=== PATIENT | female | born 1985 | race Caucasian/White ===

== ENCOUNTER → 2018-01-03 11:07 | Outpatient (CLI) | payer OTHER, SELFPAY ==
[2018-01-03 11:36] LABS: Basophils # 0.1 K/mm3 (0-0.2); Basophils % 0.4 % (0.1-2.0); Eosinophils # 0.3 K/mm3 (0.0-0.4); Eosinophils % 1.9 % (0.1-12.0); Hematocrit 38.2 % (37.0-47.0); Hemoglobin 12.8 g/dL (12.2-16.2); Lymphocytes # 2.3 K/mm3 (0.7-4.5); Lymphocytes % 16.7 K/mm3 (10-50); Mean Corpuscular HGB Conc 33.6 g/dL (31.8-35.4); Mean Corpuscular Volume 89.4 fl (81-99); Mean Platelet Volume 7.3 fl (7.4-10.4); Monocytes # 0.5 K/mm3 (0.1-1.0); Monocytes % 3.8 % (1.7-9.3); Neutrophils # 10.4 K/mm3 (1.8-7.8); Neutrophils % 77.3 % (37.0-80.0); Platelet Count 326 K/mm3 (142-424); Red Blood Count 4.28 M/mm3 (4.20-5.40); Red Cell Distribution Width 13.6 % (11.5-17.5); White Blood Count 13.5 K/mm3 (4.8-10.8)
[2018-01-03 12:21] LABS: HCG,Quantitative 16121 mIU/mL
[2018-01-04 08:23] LABS: HIV Screen 4th Generation wRfx Non Reactive (Non Reactive)
[2018-01-04 18:43] LABS: Hepatitis B Surface Antigen Negative (Negative); Hepatitis C Antibody 0.1 s/co ratio (0.0-0.9); Rapid Plasma Reagin Ab Titer Non Reactive (NonRea<1:1); Rubella Antibodies, IgG 2.75 index (Immune >0.99)
== END ==
PROVIDERS: PCP Obstetrics & Gynecology; Visit Provider Obstetrics & Gynecology
DX: Z34.90 Encounter for supervision of normal pregnancy, unspecified, unspecified trimester (principal)
CPT/HCPCS: 36415; 84702; 85025; 86592; 86703; 86762; 86850; 87340; 87380; G0432

== ENCOUNTER → 2018-03-10 19:03 | Outpatient (REF) | payer OTHER, SELFPAY | LOC: LAB 19:03 | PROVIDERS: Visit Provider Nurse Practitioner Obstetrics & Gynecology | DX: R39.89 Other symptoms and signs involving the genitourinary system (principal) | CPT/HCPCS: 87086 ==

== ENCOUNTER → 2018-04-09 13:23 | Outpatient (CLI) | payer OTHER, SELFPAY ==
--- NOTE | 2018-04-09 13:25 | US_ITS ---
US OB /maternal detail: INDICATION: ITS.REASON: US OB Complete ORDERING PHYSICIAN: Alyssa Nettles MD PATIENT AGE: 32 years TECHNIQUE: ultrasound transabdominal scanning. COMPARISON: No previous relevant studies. FINDINGS: Single viable intrauterine gestation. Cephalic position. Placenta: ANT placenta grade 1. There is antegrade amount fluid. The cervix appears satisfactory. Closed and measuring in length. Complete survey performed and was unremarkable on the submitted images as in PACS. No discrete anomalies identified on survey imaging by technologist. Active fetus. Three-vessel cord with satisfactory umbilical cord insertion. 4- chamber heart noted. Survey of brain & ventricles unremarkable. Face and neck survey unremarkable. Diaphragm and chest views unremarkable. Abdomen: Both kidneys noted and unremarkable. Stomach noted and satisfactory. Spine: Survey of the spine satisfactory with no anomalies identified nor imaged. Both arms and legs noted. Amniotic Fluid: Adequate. Maternal adnexa: No significant findings. Measurements: Average ultrasound age 20w2d. Gestational Age 20w0d. Estimated due date by ultrasound age 0408/25/2018. Estimated weight 341 grams. BPD = 20w3d OFD = 20w4d HC = 19w5d AC = 20w3d FL = 20w2d Growth Percentile= 60% Heart Rate = 155 Cerebellum = 20w3d Humerus = 20w0d HC/AC is 1.13 (1.09-1.26). CI is 79% (70-86%). FL/BPD is 69%. FL/AC is 22%. IMPRESSION: There is a single fetus which is in cephalic presentation. Average ultrasound age is 20 weeks and 2 days. All parameters correlate. No obvious anomalies. Fetus is active. Placenta is anterior grade 1. Please see above for details.
== END ==
PROVIDERS: Visit Provider Obstetrics & Gynecology
DX: Z36.0 Encounter for antenatal screening for chromosomal anomalies (principal)
CPT/HCPCS: 76811

== ENCOUNTER → 2018-06-06 08:18 | Outpatient (CLI) | payer OTHER, SELFPAY ==
[2018-06-06 08:39] LABS: Glucose,Fasting 109 mg/dL (60-105)
[2018-06-06 10:56] LABS: Glucose 1 Hour 158 mg/dL (74-106)
== END ==
PROVIDERS: Visit Provider Obstetrics & Gynecology
DX: Z34.90 Encounter for supervision of normal pregnancy, unspecified, unspecified trimester (principal); Z3A.27 27 weeks gestation of pregnancy
CPT/HCPCS: 36415; 82951

== ENCOUNTER → 2018-06-20 07:52 | Outpatient (CLI) | payer OTHER, SELFPAY ==
[2018-06-20 08:54] LABS: Glucose,Fasting 100 mg/dL (60-105)
[2018-06-20 09:49] LABS: Glucose 1 Hour 158 mg/dL (74-106)
[2018-06-20 11:08] LABS: Glucose 2 Hour 137 mg/dL (74-106)
[2018-06-20 12:05] LABS: Glucose 3 Hour 113 mg/dL (74-106)
== END ==
PROVIDERS: Visit Provider Obstetrics & Gynecology
DX: Z34.90 Encounter for supervision of normal pregnancy, unspecified, unspecified trimester (principal)
CPT/HCPCS: 36415; 82951

== ENCOUNTER → 2018-07-09 10:03 | Outpatient (CLI) | payer OTHER, SELFPAY ==
--- NOTE | 2018-07-09 10:05 | US_ITS ---
US OB follow up: Indication: ITS.REASON: US OB- Growth NIC ORDERING PHYSICIAN: Alyssa Nettles MD PATIENT AGE: 33 years FINDINGS: The following parameters are obtained: Average ultrasound age is 35w6d. Estimated due date by ultrasound is 08/07/2018. Estimated weight is 2600gm. Growth percentile is 94% BPD: 37w6d OFD: 36w3d HC: 36w3d AC: 35w2d FL: 33w4d heart rate: 142 bpm. HC/AC: 1.03 (0.96-1.11) Cephalic index: 83% (70-86%) FL/BPD: 70% (71-87%) FL/AC: 21% (20-24%) Amniotic fluid index: 16 cm Qualitative AFV: 2 breathing movements: 2 Gross body movements: 2 Tone: 2 Biophysical profile score: 8/8 No obvious anomalies evident. Placenta: ANT GR 1 Cervix: Appears closed and measures 3 cm IMPRESSION: There is a single live fetus which is in cephalic presentation. Average ultrasound age is 35 weeks and 6 days with some discordance between the femur length and the remaining measurements. Estimated weight is 2600 g which is 94th percentile indicating large for gestational age Biophysical profile 8 of 8 with normal amniotic fluid index of 16 cm
== END ==
PROVIDERS: PCP Obstetrics & Gynecology; Visit Provider Obstetrics & Gynecology
DX: O36.60X0 Maternal care for excessive fetal growth, unspecified trimester, not applicable or unspecified (principal)
CPT/HCPCS: 76816

== ENCOUNTER → 2018-07-11 16:13 | Outpatient (CLI) | payer OTHER, SELFPAY | LOC: LAB 16:13 → LAB.DROPOF 16:17 | PROVIDERS: Visit Provider Obstetrics & Gynecology | DX: Z34.90 Encounter for supervision of normal pregnancy, unspecified, unspecified trimester (principal) | CPT/HCPCS: 87086 ==

== ENCOUNTER → 2018-07-23 17:56 | Outpatient (CLI) | payer OTHER, SELFPAY | PROVIDERS: Visit Provider Obstetrics & Gynecology | DX: Z34.90 Encounter for supervision of normal pregnancy, unspecified, unspecified trimester (principal) | CPT/HCPCS: 86403 ==

== ENCOUNTER 2018-08-14 15:39 | Inpatient (IN) ==
[2018-08-14 16:29] LABS: Basophils % 0.3 % (0.1-2.0); Eosinophils # 0.3 K/mm3 (0.0-0.4); Hemoglobin 10.5 g/dL (12.2-16.2); Lymphocytes % 16.1 % (10-50); Mean Corpuscular Hemoglobin 30.2 pg (27.0-31.2); Mean Corpuscular Volume 86.2 fl (81-99); Mean Platelet Volume 8.3 fl (7.4-10.4); Monocytes # 0.4 K/mm3 (0.1-1.0); Monocytes % 3.1 % (1.7-9.3); Neutrophils # 9.9 K/mm3 (1.8-7.8); Neutrophils % 78.5 % (37.0-80.0); Platelet Count 283 K/mm3 (142-424); Red Blood Count 3.48 M/mm3 (4.20-5.40); Red Cell Distribution Width 13.6 % (11.5-17.5); White Blood Count 12.6 K/mm3 (4.8-10.8)
--- NOTE | 2018-08-15 09:04 | History & Physical Report ---
OB - H&P: HPI Antepartum - History of Present Illness Chief complaint: IOL History of present illness: 33 yo G1 @ 38 wks admitted for IOL secondary to new onset hypertension during at term. Recent upward trend of BP into persistent mild range hypertension; preeclampsia labs negative. Given gestational age over 37 wks, she was advised that continuing the until 39 wks or onset of spontaneous labor provided no benefit over the risk of severe hypertensive complications and/or development of preeclampsia, and that immediate delivery was warranted. Cervix was relatively unfavorable (1/50/-1, soft) and she was brought in for cervical ripening with prostaglandins (cervidil) and mechanical augmentation with intra-cervical catheter on the evening of 08/14/18, with plan to begin pitocin augmentation on the morning of 08/15/18. otherwise complicated by tobacco abuse, mild anemia and obesity (BMI 39). testing with NST was reassuring at her last office visit on 08/13/18. [facility] History I have reviewed the patient's past medical history: Yes Medical History: Denies:: Arrhythmia, Diabetes Mellitus Type 2, Hypertension, Palpitations *Have you ever received a pneumonia vaccine?: No *Have you received a flu vaccine this season?: No Other Surgeries: Yes: No Previous Surgery. No: Amputation: No Fractures: No - *Social History Smoking Status: Former smoker Tobacco Type: cigarettes Alcohol Intake: never Substance Use Type: denies use *Occupational Status:: employed Family Hx:: Cancer, Diabetes, Heart Attack, Thyroid Disorder, Stroke, Kidney Disease, Hypertension, Hyperlipidemia, Asthma : 1 Para: 0 Review of Systems - Review of Systems CONSTITUTIONAL: no fever/chills HEENT: no oral lesions PULMONARY: no shortness of breath or difficulty breathing CV: no racing heart, palpitations or chest pain ABD: no abdominal pain, N/V : irregular contractions; no vaginal bleeding or LOF SKIN: no new rash or skin lesions EXT: + LE edema NEURO: no JAFFE or visual changes PSYCH: no current anxiety/depression OB: normal movement Meds Home Medications Medication Instructions Recorded Confirmed Type 1 tab PO DAILY 18 08/13/18 History vitamin,calcium,tdihqgpt-qran-zsdkh acid tablet Allergies Allergy/AdvReac Type Severity Reaction Status Date / Time nitrofurantoin Allergy Mild Verified 08/13/18 16:16 OB - H&P: Exam - Physical Exam Vital signs: Temp Pulse Resp BP Pulse Ox 97.6 F 82 18 133/64 99 08/14/18 19:43 08/14/18 19:43 08/14/18 19:43 08/14/18 19:43 08/14/18 19:43 Narrative: PHYSICAL EXAM: CONSTITUTIONAL: no acute distress HEENT: mucous membranes moist PULMONARY: breathing unlabored without audible wheezes CV: no tachycardia or visible JVD; normal LE peripheral pulses ABD: soft, NT/ND, no guarding. Gravid uterus. : cervix 1-2/50/-1 SKIN: no visible rash or lesions HEME: no lymphadenopathy EXT: 1+ edema LEs NEURO: alert/oriented, no altered mental status PSYCH: appropriate mood and demeanor without visible anxiety/depression SSE: cervix visualized midline and prepped with hibiclense Intra-cervical catheter inserted to the level of the internal cervical os and balloon inflated with 40cc sterile water, and pulled tight against the internal os Vaginal balloon inflated with 40cc sterile water and pushed tight towards the external os Appropriate placement of catheter and both balloons confirmed by digital exam Catheter taped to the patient's leg Patient tolerated the procedure well and NST remained reassuring throughout NST: Basline: 140 Variability: moderate Accelerations: yes Decelerations: no Impression: Reactive, Category 1 OB - Results - Labs Labs: Short CBC 08/14/18 Range/Units 15:16 WBC 12.6 H (4.8-10.8) K/mm3 Hgb 10.5 L (12.2-16.2) g/dL Hct 30.0 L (37.0-47.0) % Plt Count 283 (142-424) K/mm3 OB - A/P Antepartum (1) Current visit: Yes Status: Acute (2) Hypertension complicating Current visit: Yes Status: Acute (3) LGA (large for gestational age) fetus Current visit: Yes Status: Acute (4) Macrosomia Problem details: EFW 94% Current visit: Yes Status: Acute (5) Obesity, Class II, BMI 35-39.9 Current visit: Yes Status: Acute (6) Anemia complicating Problem details: 38 WKS GA Current visit: Yes Status: Acute (7) Tobacco smoking complicating in first trimester Problem details: 1/2 PPD Current visit: Yes Status: Acute - Additional Plan Additional Information:: IOL with prostaglandin and mechanical ripening Begin pitocin augmentation 08/15 am after removal of cervical catheter and cervidil Continuous monitoring Epidural at patient request Anticipate Tobacco cessation counseling
--- NOTE | 2018-08-15 10:01 | Progress Note ---
[facility] Anesthesia Checklist - Patient Identification Patient Identification: Arm Band - Structural Data Admitted From: Inpatient Planned Operative Procedure/s: labor epidural Consent for Planned Operative Procedure(s) Verified: Yes Verified Documents: History and Physical - NPO Status Verified Time NPO: 00:00 - Additional verifications Anesthesia Reactions: No - Airway Assessment C-Spine Mobility Assessed: Yes (mp2) TMJ Mobility Assessed: Yes Dentition: Good Dentition - Neurological Assessment Level of Consciousness: Awake, Alert - Anesthesia Plan Anesthesia Risk discussed: Yes Anesthesia Plan: Verified ASA Class: II Anesthesia Type: Epidural [facility] History I have reviewed the patient's past medical history: Yes Medical History: Denies:: Arrhythmia, Diabetes Mellitus Type 2, Hypertension, Palpitations *Have you ever received a pneumonia vaccine?: No *Have you received a flu vaccine this season?: No Other Surgeries: Yes: No Previous Surgery. No: Amputation: No Fractures: No - *Social History Smoking Status: Former smoker Tobacco Type: cigarettes Alcohol Intake: never Substance Use Type: denies use *Occupational Status:: employed Family Hx:: Cancer, Diabetes, Heart Attack, Thyroid Disorder, Stroke, Kidney Disease, Hypertension, Hyperlipidemia, Asthma Para: 0
[2018-08-15 10:32] LABS: Microscopic, Urine URINE MICROSCOPIC (MICROSCOPIC)
[2018-08-15 10:34] LABS: Appearance,Urine CLEAR (Clear); Bilirubin,Urine Negative (Negative); Blood, Urine Negative (Negative); Color,Urine YELLOW (Yellow); Glucose,Urine (UA) Negative (Negative); Ketones,Urine Negative (Negative); Leukocyte Esterase,Urine Negative (Negative); PH,Urine 6.5 (5.0-8.5); Protein,Urine Negative (Negative); Specific Gravity, Urine 1.015 (1.005-1.030); Urobilinogen,Urine 0.2 EU/dl (0.2)
[2018-08-15 11:33] LABS: Bacteria,Urine 1+ /lpf; Mucus,Urine 1+ /lpf
--- NOTE | 2018-08-15 15:04 | Progress Note ---
Labor Note - Subjective: Date: 08/15/18 Time: 10:05 regular contraction - Objective: NST:: Reactive Contractions:: every 2-3 minutes Cervical Dilation:: 4 Effacement:: 50% Station: -2 Membranes: ruptured Comment:: AROM with copious clear fluid. IUPC and FSE placed without complication or difficulty. - Fetus: Monitoring?: Yes monitoring type:: Internal - Assessment: Patient Problems: All Active Problems Anemia complicating (Acute) Macrosomia (Acute) LGA (large for gestational age) fetus (Acute) Hypertension complicating (Acute) Obesity, Class II, BMI 35-39.9 (Acute) Tobacco smoking complicating in first trimester (Acute) Lower extremity edema (Acute) (Acute) - Plan: Comment:: Continue pitocin augmentation. No progress in cervical dilation since removal of cervical catheter and starting pitocin augmentation but patient only recently had epidural placed for pain management. Will continue to monitor.
--- NOTE | 2018-08-15 15:08 | Progress Note ---
Labor Note - Subjective: Date: 08/15/18 Time: 14:15 regular contraction - Objective: NST:: Reactive Contractions:: every 2-3 minutes Cervical Dilation:: 4 Effacement:: 50% Station: -2 Membranes: ruptured - Fetus: monitoring type:: Internal Comment:: intermittent variable and late decelerations over the past 2 hours - Assessment: Labor progressing?: No Patient Problems: All Active Problems Anemia complicating (Acute) Macrosomia (Acute) LGA (large for gestational age) fetus (Acute) Hypertension complicating (Acute) Obesity, Class II, BMI 35-39.9 (Acute) Tobacco smoking complicating in first trimester (Acute) Lower extremity edema (Acute) (Acute) - Plan: Comment:: No change in cervical exam since pitocin begun 0500. Patient also having intermittent but persistent variable and late decelerations over the past couple hours. Appropriate return to baseline and overall reassuring status, but in the context of no cervical guide changer a prolonged period of time, in spite of adequate contractions, patient advised that it is not appropriate to continue with pitocin augmentation. Will proceed to OR for primary CS at this time. Informed consent obtained and all questions answered.
--- NOTE | 2018-08-15 16:09 | Operative Note ---
Date of procedure: 08/15/18 Pre-op Diagnosis:: 1. 38 wk 2. -induced hypertension 3. heart rate decelerations 4. failure to progress in labor 5. maternal obesity 6. anemia complicating 7. LGA fetus 8. tobacco abuse in Post-op Diagnosis:: 1. 38 wk 2. -induced hypertension 3. heart rate decelerations 4. failure to progress in labor 5. maternal obesity 6. anemia complicating 7. LGA fetus 8. tobacco abuse in Procedure performed:: Primary Low Transverse C Section Surgeon:: Alyssa Nettles MD Broom Handle Dipper(s):: Azra Almonte RN SUTURE WINDER HAND:: Other Anesthesia: epidural Estimated blood loss (mL): 800 Operative findings:: Vigorous liveborn male infant, with apgars of 8 & 9. Grossly normal uterus, fallopian tubes and ovaries. Placental calcification. Nuchal cord x 1. Operative note:: The patient was taken to the OR and her epidural was confirmed to be an adequate level block for the procedure. She was prepped and draped in normal sterile fashion. A pfannenstiel skin incision was made with the scalpel 2cm above the pubic symphysis, and sharply carried down to the fascia. The fascia was incised in the midline, extended laterally, and sharply dissected off the rectus muscles. The muscles were in the midline and the peritoneum was entered sharply and extended bluntly, with good visualization of the underlying stuctures. The Jean Claude-O self retaining retractor was placed in the abdomen and a bladder flap was created. The uterus was incised in the lower uterine segment in a transverse fashion and extended bluntly. Amniotomy had already been performed, but a copious amount of clear amniotic fluid was noted. Nuchal cord x 1 was reduced on the field. The was delivered in controlled fashion, without complication or shoulder dystocia. The was vigorous at and handed to awaiting waste management recycling technician for evaluation after the umbilical cord was cut. Cord blood was collected and a cord segment was preserved. The placenta was manually extracted and noted to be intact, with moderate calcifications. The uterus was repaired with 0-vicryl in a running/locked fashion. The peritoneum was closed with 2-0 vicryl in a running fashion. The fascia was closed with #1 vicryl in a running fashion. The subcutaneous fat was closed with 2-0 vicryl in an interrupted fashion. The skin was closed with vanessa. The patient tolerated the procedure well. Sponge, lap, needle and instrument counts were correct x 2. Total EBL: 800cc. She was taken to PACU awake and in stable condition, and the infant was taken back to Labor and Delivery. Condition: stable Disposition: PACU Specimens:: Placenta Complications:: None
--- NOTE | 2018-08-15 16:16 | Progress Note ---
[facility] Anesthesia Record Part I Intake, IV Amount: 700 Estimated blood loss (mL): 800 Urine output (mL): 150 Blood Products used (#): none Blood Pressure: 131/39 SaO2: 100 Pulse Rate: 91 Respiratory Rate: 16 Temperature: 97.9 F Patient is:: Awake, Stable Stable to PACU at:: 16:05
--- NOTE | 2018-08-15 16:17 | Progress Note ---
[facility] Anesthesia Record Part II Discharge Time: 16:35 Destination: Obstetric PACU nurse assessment reviewed?: Yes Patient Condition:: Good Anesthesia Complications:: None Swallowing reflex intact?: Yes Cyanosis?: No
[2018-08-16 05:57] LABS: Hemoglobin 8.4 g/dL (12.2-16.2)
[2018-08-16 06:01] LABS: Hematocrit 24.9 % (37.0-47.0)
--- NOTE | 2018-08-16 14:47 | Progress Note ---
Internal Medicine - PN: Subj *Date: 08/16/18 *Time: 14:41 Interval history: POD #1 primary CS for non-reassuring status and failure to progress in labor No complaints Asymptomatic with nvgpf-tl-mfxbtti anemia (hgb 10.5 at admission and 8.4 on POD #1) Lochia appropriate amount Ambulating and voiding without difficulty Tolerating regular diet Exam Vital signs and Labs for Last 24 Hours: Temp Pulse Resp BP Pulse Ox 98.1 F 98 H 18 142/81 H 97 08/15/18 19:26 08/15/18 19:26 08/15/18 19:26 08/15/18 19:26 08/15/18 19:26 Laboratory Results - last 24 hr 08/16/18 05:50: Hgb 8.4 L, Hct 24.9 L I & O for Last 24 hours: Intake & Output 08/14/18 08/15/18 08/16/18 08/17/18 11:59 11:59 11:59 11:59 Intake Total 800 / 800 Output Total 675 / 675 Balance 125 / 125 Weight 241 lb Narrative: CONSTITUTIONAL: no acute distress HEENT: mucous membranes moist PULMONARY: breathing unlabored without audible wheezes CV: no tachycardia or visible JVD; normal LE peripheral pulses ABD: soft, NT/ND, no guarding : fundus firm at/below umbilicus SKIN: incision well approximated with no drainage, erythema or induration EXT: 1+ edema LEs NEURO: alert/oriented, no altered mental status PSYCH: appropriate mood and demeanor without anxiety/depression Assessment and Plan (1) Current visit: Yes Status: Acute Qualifiers: Weeks of gestation: 38 weeks Qualified Code(s): Z3A.38 - 38 weeks gestation of Category: Medical Code(s): Z34.90 - Encounter for supervision of normal , unspecified, unspecified trimester (2) Hypertension complicating Current visit: Yes Status: Acute Category: Medical Code(s): O16.9 - Unspecified maternal hypertension, unspecified trimester (3) LGA (large for gestational age) fetus Current visit: Yes Status: Acute Category: Medical (4) Macrosomia Problem details: EFW 94% Current visit: Yes Status: Acute Category: Medical Code(s): P08.0 - Exceptionally large baby (5) Obesity, Class II, BMI 35-39.9 Current visit: Yes Status: Acute Category: Medical Code(s): E66.9 - Obesity, unspecified (6) Anemia complicating Problem details: 38 WKS GA Current visit: Yes Status: Acute Category: Medical Code(s): O99.019 - Anemia complicating , unspecified trimester (7) Tobacco smoking complicating in first trimester Problem details: 1/2 PPD Current visit: Yes Status: Acute Category: Medical Code(s): O99.331 - Smoking (tobacco) complicating , first trimester (8) Late deceleration of heart rate Current visit: Yes Status: Acute Category: Medical Code(s): O36.8390 - Maternal care for abnormalities of the heart rate or rhythm, unspecified trimester, not applicable or unspecified (9) Failure to progress in labor Current visit: Yes Status: Acute Category: Medical Code(s): O62.2 - Other uterine inertia (10) Placental abnormality Problem details: calcified Current visit: Yes Status: Acute Category: Med ical Code(s): O43.109 - Malformation of placenta, unspecified, unspecified trimester (11) Anemia associated with acute blood loss Current visit: Yes Status: Acute Category: Medical Code(s): D62 - Acute posthemorrhagic anemia - Assessment and plan all Dx Assessment and Plan for all problems:: Continue routine postop/ care FeSO4 supplementation with PNV BP have remained stable in mild range and not requiring medical treatment at this time; will continue to monitor
--- NOTE | 2018-08-17 15:10 | Progress Note ---
Internal Medicine - PN: Subj *Date: 08/17/18 *Time: 15:06 Interval history: POD #2 primary CS No complaints Ambulating and voiding without difficulty Tolerating regular diet Lochia appropriate Asymptomatic with sjcii-cg-mskwzsd anemia; tolerating BID FeSO4 supplementation Exam Vital signs and Labs for Last 24 Hours: Temp Pulse Resp BP Pulse Ox 98.1 F 117 H 18 137/73 98 08/16/18 19:45 08/16/18 19:45 08/16/18 19:45 08/16/18 19:45 08/16/18 19:45 I & O for Last 24 hours: Intake & Output 08/15/18 08/16/18 08/17/18 08/18/18 11:59 11:59 11:59 11:59 Intake Total 800 / 800 Output Total 675 / 675 Balance 125 / 125 Weight 241 lb Narrative: CONSTITUTIONAL: no acute distress HEENT: mucous membranes moist PULMONARY: breathing unlabored without audible wheezes CV: no tachycardia or visible JVD; normal LE peripheral pulses ABD: soft, ND; appropriately tender but no rebound/guarding : fundus firm at/below umbilicus SKIN: incision well approximated with no drainage, erythema or induration EXT: 1+ edema LEs NEURO: alert/oriented, no altered mental status PSYCH: appropriate mood and demeanor without anxiety/depression Assessment and Plan (1) Current visit: Yes Status: Acute Qualifiers: Weeks of gestation: 38 weeks Qualified Code(s): Z3A.38 - 38 weeks gestation of Category: Medical Code(s): Z34.90 - Encounter for supervision of normal , unspecified, unspecified trimester (2) Hypertension complicating Current visit: Yes Status: Acute Category: Medical Code(s): O16.9 - Unspecified maternal hypertension, unspecified trimester (3) LGA (large for gestational age) fetus Current visit: Yes Status: Acute Category: Medical (4) Macrosomia Problem details: EFW 94% Current visit: Yes Status: Acute Category: Medical Code(s): P08.0 - Exceptionally large baby (5) Obesity, Class II, BMI 35-39.9 Current visit: Yes Status: Acute Category: Medical Code(s): E66.9 - Obesity, unspecified (6) Anemia complicating Problem details: 38 WKS GA Current visit: Yes Status: Acute Category: Medical Code(s): O99.019 - Anemia complicating , unspecified trimester (7) Tobacco smoking complicating in first trimester Problem details: 1/2 PPD Current visit: Yes Status: Acute Category: Medical Code(s): O99.331 - Smoking (tobacco) complicating , first tri mester (8) Late deceleration of heart rate Current visit: Yes Status: Acute Category: Medical Code(s): O36.8390 - Maternal care for abnormalities of the heart rate or rhythm, unspecified trimester, not applicable or unspecified (9) Failure to progress in labor Current visit: Yes Status: Acute Category: Medical Code(s): O62.2 - Other uterine inertia (10) Placental abnormality Problem details: calcified Current visit: Yes Status: Acute Category: Medical Code(s): O43.109 - Malformation of placenta, unspecified, unspecified trimester (11) Anemia associated with acute blood loss Current visit: Yes Status: Acute Category: Medical Code(s): D62 - Acute posthemorrhagic anemia - Assessment and plan all Dx Assessment and Plan for all problems:: Continue routine postop/ care FeSO4 supplementation BID for znngo-wz-kymyrwq anemia Anticipate discharge tomorrow
[2018-08-17 22:48] VITALS: BP 147/83
--- NOTE | 2018-08-18 13:18 | Discharge Summary ---
General - General Admission date:: 08/14/18 Discharge date: 08/18/18 HPI HPI: POD #3 primary c section for heart rate decelerations and failure to progress in labor Normal progression to ambulating and voiding without difficulty Tolerating regular diet Asymptomatic with anemia Ready for discharge home; vanessa removed prior to discharge Hospital Course Hospital Course: as documented in HPI Rhogam Administration: Not Indicated Objective Vital signs: Temp Pulse Resp BP Pulse Ox 97.7 F 96 H 18 147/83 H 99 08/17/18 20:15 08/17/18 20:15 08/17/18 20:15 08/17/18 20:15 08/17/18 20:15 Narrative: CONSTITUTIONAL: no acute distress HEENT: mucous membranes moist PULMONARY: breathing unlabored without audible wheezes CV: no tachycardia or visible JVD; normal LE peripheral pulses ABD: soft, ND; appropriately tender but no rebound/guarding : fundus firm at/below umbilicus SKIN: incision well approximated with no drainage, erythema or induration EXT: 1+ edema LEs NEURO: alert/oriented, no altered mental status PSYCH: appropriate mood and demeanor without anxiety/depression DS: Diagnosis - Discharge Diagnosis (1) Status: Acute (2) Hypertension complicating Status: Acute (3) LGA (large for gestational age) fetus Status: Acute (4) Macrosomia Status: Acute Problem details: EFW 94% (5) Obesity, Class II, BMI 35-39.9 Status: Acute (6) Anemia complicating Status: Acute Problem details: 38 WKS GA (7) Tobacco smoking complicating in first trimester Status: Acute Problem details: 1/2 PPD (8) Late deceleration of heart rate Status: Acute (9) Failure to progress in labor Status: Acute (10) Placental abnormality Status: Acute Problem details: calcified (11) Anemia associated with acute blood loss Status: Acute Discharge Plan - Patient Discharge Instructions ACTIVITY: Limited activity DIET: regular diet Additional Instructions: NO HEAVY LIFTING. NO STRENUOUS ACTIVITIES. NOTHING IN THE VAGINA FOR 6 WEEKS. Patient Instructions: DI for , DI for Surgical Site Infection - Follow up Plan Follow up with: Alyssa Nettles MD [Staff Physician] - Disposition: Home, Self-Usp Medications: Home Medications Medication Instructions Recorded Confirmed Type 1 tab PO DAILY 01/03/18 08/15/18 History vitamin,calcium,wnsorueh-xcve-ttcka acid tablet Ketorolac Tromethamine [Toradol 10 mg PO Q6H #30 tab 08/18/18 Rx 10mg tablet] Oxycodone HCl [OxyIR 5mg tablet] 10 mg PO Q4HP PRN #30 tab 08/18/18 Rx Prescriptions/Medication Reconciliation: New Oxycodone HCl [OxyIR 5mg tablet] 10 mg PO Q4HP PRN #30 tab PRN Reason: Moderate To Severe Pain Ketorolac Tromethamine [Toradol 10mg tablet] 10 mg PO Q6H #30 tab Continue vitamin,calcium,lnsbotfi-cgaf-yieid acid tablet 1 tab PO DAILY
== END 2018-08-18 15:00 | disposition home or self-care (01) | DRG 788 ==
LOC: OB 15:39
PROVIDERS: ADMIT Obstetrics & Gynecology; ATTEND Obstetrics & Gynecology
CPT/HCPCS: 36415; 59025; 81001; 85014; 85018; 85025; 86850; 94761; J0595